=== PATIENT | male | born 1960 | race Caucasian/White ===

== ENCOUNTER 2022-05-19 11:37 | Outpatient (CLI) | payer BC, SELFPAY ==
[2022-05-19 17:37] LABS: Creatinine Urine 140.6 mg/dL
[2022-05-19 17:40] LABS: Microalbumin Creatinine Ratio 10 mg/g (0-30); Microalbumin Urine 2 mg/dL
== END 2022-05-19 11:38 | disposition home or self-care (01) ==
PROVIDERS: PCP Family Medicine; Visit Provider Family Medicine
DX: E13.9 Other specified diabetes mellitus without complications (principal); I10 Essential (primary) hypertension; E78.5 Hyperlipidemia, unspecified; Z12.5 Encounter for screening for malignant neoplasm of prostate
CPT/HCPCS: 80048; 80061; 82043; 82570; 84153

== ENCOUNTER 2022-05-23 12:28 | Outpatient (CLI) | payer BC, SELFPAY ==
[2022-05-23 14:03] LABS: Chloride* 104 mmol/L (96-114); Potassium* 4.7 mmol/L (3.6-5.1); Sodium* 135 mmol/L (135-149)
[2022-05-23 14:06] LABS: Blood Urea Nitrogen* 17 mg/dL (7-30); Carbon Dioxide* 26 mmol/L (20-32); Cholesterol* 120 mg/dL (90-199); Creatinine* 0.9 mg/dL (0.5-1.5); Estimated Glomerular Filt Rate 98 ml/min
[2022-05-23 14:07] LABS: Calcium* 8.7 mg/dL (8.4-10.6); Glucose* 273 mg/dL (60-115); HDL Cholesterol* 32 mg/dL (>=40); LDL Cholesterol Calculated 65 mg/dL (<100); Triglycerides* 115 mg/dL (40-149)
[2022-05-23 14:38] LABS: PSA Screen* 2.85 ng/mL (0.10-4.00)
== END 2022-05-23 12:29 | disposition home or self-care (01) ==
PROVIDERS: PCP Family Medicine; Visit Provider Family Medicine
DX: E78.5 Hyperlipidemia, unspecified (principal); I10 Essential (primary) hypertension; E13.9 Other specified diabetes mellitus without complications; Z12.5 Encounter for screening for malignant neoplasm of prostate
CPT/HCPCS: 80048; 80061; 84153

== ENCOUNTER 2022-06-06 10:46 | Outpatient (CLI) | payer BC, SELFPAY ==
[2022-06-06 11:42] VITALS: BP 142/78; PULSE 90; RESP 18
--- NOTE | 2022-06-06 12:56 | W.PM.STED ---
Stress Test Note Date Date of test: 06/06/22 Providers Primary care provider: Taye Moses Stress test physician: Dalton Arredondo Stress Test Note Stress test ordered: Exercise Stress Test Indication for test: ASVD Results discussion: Patient is a very nice 62-year-old gentleman who presents with the above test after discussion the risks benefits side effects he would like to proceed pretest EKG shows normal sinus rhythm, with a ventricular rate of 66 and a blood pressure 148 on 90. Standard Harlan protocol is employed over a time course of 10 minutes 2nd, metabolic equivalent 11.7 Mets, his maximum heart rate was 143 which is 105% of the maximum, maximum blood pressure was 192/82. Test is terminated because of fulfillment of protocol, during this test he did not have any chest pain shortness of breath or any other symptoms. There is no dysrhythmias and no ST wave changes suggestive of ischemia. Functional status is excellent Impression: Negative electrographic portion of stress echo Follow up suggested: Patient will be discharged from this facility follow-up with primary care physician, clinical correlation with this will be needed, he left this testing facility in excellent condition back to baseline
== END 2022-06-06 12:00 | disposition home or self-care (01) ==
LOC: STRESS 10:48
PROVIDERS: PCP Family Medicine; Visit Provider Family Medicine
DX: I25.10 Atherosclerotic heart disease of native coronary artery without angina pectoris (principal)
CPT/HCPCS: 93016; 93017

== ENCOUNTER 2023-09-04 11:21 | Outpatient (CLI) | payer BC, SELFPAY | END 2023-09-04 11:22 | disposition home or self-care (01) | PROVIDERS: PCP Family Medicine; Visit Provider Family Medicine | DX: E78.5 Hyperlipidemia, unspecified (principal); I10 Essential (primary) hypertension | CPT/HCPCS: 80048; 80061 ==

== ENCOUNTER 2024-07-16 09:03 | Outpatient (CLI) | payer BC, SELFPAY | END 2024-07-16 09:04 | disposition home or self-care (01) | PROVIDERS: PCP Family Medicine; Visit Provider Family Medicine | DX: E11.65 Type 2 diabetes mellitus with hyperglycemia (principal); I10 Essential (primary) hypertension; E78.5 Hyperlipidemia, unspecified; Z12.5 Encounter for screening for malignant neoplasm of prostate | CPT/HCPCS: 80048; 80061; 84681; G0103 ==

== ENCOUNTER 2024-10-14 10:46 | Outpatient (CLI) | payer BC, SELFPAY ==
[2024-10-14 11:17] VITALS: BP 150/84; PULSE 93; RESP 16
--- NOTE | 2024-10-14 12:03 | P.STN_ITS ---
Stress Test Note Date Date of test: 10/14/24 Providers Primary care provider: Taye Moses Stress test physician: Dalton Arredondo Stress Test Note Stress test ordered: Exercise Stress Test Indication for test: History of atherosclerotic heart disease with previous stent Stress test medicine: None Results discussion: This very nice patient presents for the above test after discussion the risks benefits and side effects including non diagnosis like to proceed pretest EKG shows the ventricular rate of 71 his rhythm is sinus, Q-waves are noted inferiorly, and also laterally, which may be pathologic. No acute ST wave changes, there is however ST wave flattening, with inversion in lead 3 of the T- waves. Blood pressure initially 138 on 92, following normal Harlan protocol patient is exercised for a total time of 9 minutes, achieved a metabolic equivalent 10.3 Mets, he did attainment maximum heart rate of 144 which is 107% of the maximum test is terminated for 2 reasons 1. He attained a maximum heart rate trauma 2. He had some leg discomfort. And could not proceed. Review of the tracing, showed some indeterminate ST wave flattening and depression noted laterally and inferiorly this is nondiagnostic, for ischemia, there are no dysrhythmias Impression: Negative electrographic tracing for inducement of ischemic changes, no subjective complaints attributed to cardiac Follow up suggested: Follow-up with primary care, further testing is needed echo would be suggested, but he has good conditioning is noted on this test a got to 9 minutes.
== END 2024-10-14 11:25 | disposition home or self-care (01) ==
LOC: STRESS 10:46
PROVIDERS: PCP Family Medicine; Visit Provider Family Medicine
DX: I25.10 Atherosclerotic heart disease of native coronary artery without angina pectoris (principal); I10 Essential (primary) hypertension
CPT/HCPCS: 93016; 93017